=== PATIENT | female | born 1990 | race Caucasian/White ===

== ENCOUNTER 2017-01-01 12:17 | Emergency (ER) | payer OTHER ==
[2017-01-01 12:25] VITALS: BP 119/54; PULSE 79; TEMP 98.1; BMI 31.8
[2017-01-01] MEDS ORDERED: diphenhydrAMINE HCL 25 MG CAPSULE (FP) PO ONE ×2 (13:23→13:34)
[2017-01-01] MEDS ORDERED: DEXAMETHASONE 4 MG TABLET (FP) ONE (13:23)
[2017-01-01] MEDS ORDERED: DEXAMETHASONE 4 MG TABLET (FP) PO ONE (13:34)
--- NOTE | 2017-01-01 13:48 | PDOC ---
History of Present Illness - General Chief Complaint: Allergic Reaction Stated Complaint: RASH ON BODY Time Seen by Provider: 01/01/17 12:49 - History of Present Illness Initial Comments: 01/01/17 13:35 CHIEF COMPLAINT: HISTORY OF PRESENT ILLNESS: 26 yo F with no PMH presents to [facility] with rash since yesterday. Patient states the rash is all over her body including her face. She denies any difficulty breathing, speaking, or swallowing, and denies any swelling to lips, mouth, tongue, or throat, but does report feeling "some tightness to my chest right now." She denies any fever, nausea, vomiting , diarrhea, and denies any new foods or contact with new substances. She does report this happened once last year. No recent travel or sick contacts. PAST MEDICAL HISTORY: Denies past medical history FAMILY HISTORY: Denies SURGICAL HISTORY: Denies ALLERGIES: fish, PCN REVIEW OF SYSTEMS General/Constitutional: Denies fever or chills. Respiratory: no shortness of breath, difficulty speaking or swallowing Cardiovascular: Denies chest pain or shortness of breath. Skin: Rash all over body starting yesterday. PHYSICAL EXAM General Appearance: Well-appearing, appropriately dressed. No apparent distress , no intoxication. HEENT: No swelling to mouth, throat, lips, uvula, oropharynx. EOMI, PERRLA, normal ENT inspection, normal voice, TMs normal, pharynx normal. No conjunctival pallor. No photophobia, scleral icterus. Respiratory/Chest: Lungs CTAB. Cardiovascular: RRR. S1, S2. Integumentary: Generalized, erythematous, macular rash to entire body including , back, torso, arms, legs, and R forehead. Neurologic: environmental quality analyst II-XII intact. Fully oriented, alert. Appropriate mood/affect. Motor strength 5/5. No appreciable EOM palsy, facial droop or sensory deficit. 01/01/17 13:54 Past History - Past Medical History Allergies/Adverse Reactions: Allergies Allergy/AdvReac Type Severity Reaction Status Date / Time Fish Containing Products Allergy Mild Hives Verified 01/01/17 12:24 fish derived Allergy Mild Hives Verified 01/01/17 12:24 Penicillins Allergy Mild Hives Verified 01/01/17 12:24 Home Medications: Ambulatory Orders Methocarbamol [Robaxin -] 500 mg PO BID #14 tablet 10/16/15 Naproxen [Naprosyn -] 500 mg PO BID #14 tablet 10/16/15 Sulfamethoxazole/Trimethoprim [Bactrim Ds -] 1 tab PO BID #14 tablet 10/16/15 Diphenhydramine HCl [Diphen] 25 mg PO QID PRN #28 tablet 01/01/17 Epinephrine [Epipen] 0.3 mg IJ ONCE PRN #1 auto.injct 01/01/17 Hydrocortisone [Anti-Itch] 1 applic TP QID PRN #1 lotion 01/01/17 Anemia: Yes Asthma: Yes (seasonal) - Surgical History Abdominal Surgery: Yes Cholecystectomy: Yes - Reproductive History (#): 1 Para: 1 Cervical CA: No Dysfunctional Uterine Bleeding: No Ectopic : No Endometrial CA: No Polycystic Ovaries: No Therapeutic (s) & number: No Tubal Ligation: No - Immunization History Immunization Up to Date: Yes - Psycho/Social/Smoking Cessation Hx Anxiety: No Suicidal Ideation: No Smoking Status: No Smoking History: Never smoked Have you smoked in the past 12 months: No Number of Cigarettes Smoked Daily: 0 Information on smoking cessation initiated: No Hx Alcohol Use: No Drug/Substance Use Hx: No Substance Use Type: None Hx Substance Use Treatment: No *Physical Exam - Vital Signs Last Vital Signs Temp Pulse Resp BP Pulse Ox 98.1 F 79 19 119/54 99 01/01/17 12:23 01/01/17 12:23 01/01/17 12:23 01/01/17 12:23 01/01/17 12:23 Medical Decision Making - Medical Decision Making 01/01/17 13:48 26 yo F with no PMH presents to [facility] with urticaria involving face -Benadryl -Decadron rx for Benadryl and epi pen sent to pharm Advised patient to take medication as prescribed and follow up with c d stripper within the next week. Advised patient of signs and symptoms for use of epipen and return to ED. Patient verbalized understanding and agrees to plan. *DC/Admit/Observation/Transfer Diagnosis at time of Disposition: Urticaria Allergic reaction Qualifiers: Encounter type: initial encounter Qualified Code(s): T78.40XA - Allergy, unspecified, initial encounter - Discharge Dispostion Admit: No - Prescriptions Prescriptions: Hydrocortisone [Anti-Itch] 1 applic TP QID PRN #1 lotion PRN Reason: For Itching Diphenhydramine HCl [Diphen] 25 mg PO QID PRN #28 tablet PRN Reason: For Itching Epinephrine [Epipen] 0.3 mg IJ ONCE PRN #1 auto.injct PRN Reason: allergic reaction - Referrals Referrals: Ricky Pagan [Primary Care Provider] - Fabby Rasmussen MD [Staff Physician] - - Patient Instructions Printed Discharge Instructions: DI for Adverse Drug Reaction -- Allergic Additional Instructions: Please use medications as prescribed and follow up with c d stripper within the next week for further evaluation of your allergy triggers. As discussed, if you experience any shortness of breath, swelling to your tongue, mouth, throat, lips, or have any difficulty speaking or swallowing, please use the epipen and return to the ER.
== END 2017-01-01 14:00 | disposition home or self-care (01) ==
LOC: JERFT 12:17
DX: L50.0 Allergic urticaria (principal); T78.40XA Allergy, unspecified, initial encounter
CPT/HCPCS: 99281-25

== ENCOUNTER 2017-04-25 14:34 | Emergency (ER) | payer OTHER ==
[2017-04-25 14:38] VITALS: BP 134/86; PULSE 16; TEMP 99.6; BMI 33.1
[2017-04-25] MEDS ORDERED: DEXAMETHASONE LIQUID 0.5 MG/5 ML 240 ML BULK BOTTLE PO ONE (14:56)
[2017-04-25] MEDS ORDERED: DEXAMETHASONE SOD PHOSPHATE 10 MG/1 ML VIAL ONE (14:58)
--- NOTE | 2017-04-25 15:20 | PDOC ---
History of Present Illness - General Chief Complaint: Sore Throat Stated Complaint: BODYACHES, SORE THROAT Time Seen by Provider: 04/25/17 14:41 History Source: Patient Exam Limitations: No Limitations - History of Present Illness Initial Comments: 04/25/17 14:59 Patient is a 27 year old female, no significant medical history currently on no medication presents with sore throat that started abruptly this a.m., generalized aches and pains, fever, dysphagia. Past Medical History: Denies. Allergies: Penicillin Medications: None Family History: Non-contributory Social History: Denies smoking, alcohol use, or IVDU Vital signs on arrival are notable for temperature of 99.8. Review of Systems GENERAL/CONSTITUTIONAL: Fever. No weakness. No weight change. HEAD, EYES, EARS, NOSE AND THROAT: No change in vision. No ear pain or discharge. Sore throat and dysphasia. CARDIOVASCULAR: No chest pain or shortness of breath. RESPIRATORY: No cough, wheezing, or hemoptysis. GASTROINTESTINAL: No nausea, vomiting, diarrhea or constipation. No rectal bleeding. GENITOURINARY: No dysuria, frequency, or change in urination. MUSCULOSKELETAL: No joint or muscle swelling or pain. No neck or back pain. SKIN AND BREASTS: No rash or easy bruising. NEUROLOGIC: No headache, vertigo, loss of consciousness, or loss of sensation. ENDOCRINE: No increased thirst. No abnormal weight change. HEMATOLOGIC/LYMPHATIC: No anemia, easy bleeding, or history of blood clots. ALLERGIC/IMMUNOLOGIC: No hives or skin allergy. No latex allergy. Physical Exam: GENERAL: The patient is awake, alert, and fully oriented, in no acute distress. EYES: Pupils equal, round and reactive to light, extraocular movements intact, sclera anicteric, conjunctiva clear. ENT: Ears normal, nares patent, oropharynx is erythematous without exudates. Moist mucous membranes. No uvula deviation NECK: Normal range of motion, supple without lymphadenopathy, JVD, or masses. LUNGS: Breath sounds equal, clear to auscultation bilaterally. No wheezes, and no crackles. HEART: Regular rate and rhythm, normal S1 and S2 without murmur, rub or gallop. ABDOMEN: Soft, nontender, normoactive bowel sounds. No guarding, no rebound. No masses. No bruising or abrasions RECTAL : Guaiac negative, normal rectal tone. MUSCULOSKELETAL: Normal range of motion, no edema. No clubbing or cyanosis. No cords, erythema, or tenderness. No CVA Tenderness with fist. NEUROLOGICAL: Cranial nerves II through XII grossly intact. Normal speech, normal gait. SKIN: Warm, Dry, normal turgor, no rashes or lesions noted. Past History - Past Medical History Allergies/Adverse Reactions: Allergies Allergy/AdvReac Type Severity Reaction Status Date / Time Fish Containing Products Allergy Mild Hives Verified 04/25/17 14:38 fish derived Allergy Mild Hives Verified 04/25/17 14:38 Penicillins Allergy Mild Hives Verified 04/25/17 14:38 Home Medications: Ambulatory Orders Epinephrine [Epipen] 0.3 mg IJ ONCE PRN #1 auto.injct 01/01/17 Azithromycin [Zithromax 250mg Tablets -] 250 mg PO UTDICT #6 tab 04/25/17 Anemia: Yes Asthma: Yes (seasonal) - Surgical History Abdominal Surgery: Yes Cholecystectomy: Yes - Reproductive History (#): 1 Para: 1 Cervical CA: No Dysfunctional Uterine Bleeding: No Ectopic : No Endometrial CA: No Polycystic Ovaries: No Therapeutic (s) & number: No Tubal Ligation: No - Immunization History Immunization Up to Date: Yes - Psycho/Social/Smoking Cessation Hx Anxiety: No Suicidal Ideation: No Smoking Status: No Smoking History: Never smoked Have you smoked in the past 12 months: No Number of Cigarettes Smoked Daily: 0 Hx Alcohol Use: Yes Drug/Substance Use Hx: No Substance Use Type: None Hx Substance Use Treatment: No *Physical Exam - Vital Signs Last Vital Signs Temp Pulse Resp BP Pulse Ox 99.6 F 16 L 121 H 134/86 98 04/25/17 14:36 04/25/17 14:36 04/25/17 14:36 04/25/17 14:36 04/25/17 14:36 Medical Decision Making - Medical Decision Making 04/25/17 15:20 A/P: Patient with fever, throat pain, dysphagia. Although physical examination only demonstrates erythema to the posterior pharynx without exudates patient's subjective data including dysphagia are highly suggestive of strep. Decadron 10 mg by mouth given for the dysphagia, rapid strep sent. Rapid strep is positive. We'll DC patient home on Motrin and azithromycin. Change toothbrush in 3 days I discussed the physical exam findings, ancillary test results and final diagnoses with the patient. I answered all of the patient's questions. The patient was satisfied with the care received and felt comfortable with the discharge plan and treatment plan. The patient will call to arrange follow-up and will return to the Emergency Department with any new, persistent or worsening symptoms. *DC/Admit/Observation/Transfer Diagnosis at time of Disposition: Strep pharyngitis - Discharge Dispostion Disposition: HOME Condition at time of disposition: Good Admit: No - Prescriptions Prescriptions: Azithromycin [Zithromax 250mg Tablets -] 250 mg PO UTDICT #6 tab - Referrals Referrals: Ricky Pagan [Primary Care Provider] - - Patient Instructions Printed Discharge Instructions: DI for Strep Throat Additional Instructions: 1. Increase fluid. 2. Pedialyte or Gatorade. 3. Please change toothbrush within 3 days of starting antibiotics. 4. Warm saltwater gargles. 5. Please follow up with PMD in 3 days if symptoms not resolving. 6. Please return to the ER unable to drink or eat, increased fever or other concerns - Post Discharge Activity Work/School Note: Back to Work
[2017-04-25] MEDS ORDERED: KETOROLAC TROMETHAMINE 60 MG/2 ML VIAL IM ONE (15:24)
[2017-04-25] MEDS ORDERED: KETOROLAC TROMETHAMINE 60 MG/2 ML VIAL ONE (15:26)
== END 2017-04-25 15:35 | disposition home or self-care (01) ==
LOC: JERFT 14:34
PROC: 3E0233Z Introduction of Anti-inflammatory into Muscle, Percutaneous Approach (ICD-10-PCS; principal; 2017-04-25)
DX: R13.10 Dysphagia, unspecified (principal); J02.0 Streptococcal pharyngitis; J45.998 Other asthma
CPT/HCPCS: 87070; 87077; 87430; 99281-25

== ENCOUNTER 2017-04-29 15:14 | Emergency (ER) | payer OTHER ==
[2017-04-29 15:23] VITALS: BP 111/79; PULSE 100; TEMP 98.6; BMI 33.1
[2017-04-29] MEDS ORDERED: DEXAMETHASONE SOD PHOSPHATE 10 MG/1 ML VIAL IM ONE (16:03)
--- NOTE | 2017-04-29 16:03 | PDOC ---
History of Present Illness - General Chief Complaint: Allergic Reaction Stated Complaint: HIVES ON BODY Time Seen by Provider: 04/29/17 15:56 History Source: Patient Exam Limitations: No Limitations - History of Present Illness Initial Comments: CHIEF COMPLAINT: 27 y/o afebrile female with no significant PMH c/o itchy rash since last night. HISTORY OF PRESENT ILLNESS: The patient states she started taking a z-pack for strep throat 5 days ago and took her last pill today. She states last night she developed an itchy rash all over her body. She did not eat anything unusual and denies f/c, n/v/d, facial swelling, lip/tongue swelling, difficulty breathing, CP, SOB, exposure to new soaps, dyes, detergents. Vital signs on arrival are notable for pulse of 100. REVIEW OF SYSTEMS: GENERAL/CONSTITUTIONAL: No fever/chills. No weakness. No weight change. HEAD, EYES, EARS, NOSE AND THROAT: No change in vision. No ear pain or discharge. No sore throat. CARDIOVASCULAR: No chest pain or shortness of breath. RESPIRATORY: No cough, wheezing, or hemoptysis. GASTROINTESTINAL: No abd pain, nausea, vomiting, diarrhea. GENITOURINARY: No dysuria, frequency, or change in urination. MUSCULOSKELETAL: No joint or muscle swelling or pain. No neck or back pain. SKIN: +diffuse itchy rash NEUROLOGIC: No headache, vertigo, loss of consciousness, or loss of sensation. PHYSICAL EXAM: GENERAL: The patient is awake, alert, and fully oriented, in no acute distress. She is well appearing and ambulatory. HEAD: Normal with no signs of trauma. EYES: Pupils equal, round and reactive to light, extraocular movements intact, sclera anicteric, conjunctiva clear. No angioedema. No lip or tongue swelling. LUNGS: CTA EXTREMITIES: Normal range of motion, no edema. NEUROLOGICAL: Normal speech, normal gait. SKIN: Diffuse maculo-papular rash on b/l legs, arms, back and stomach. Past History - Past Medical History Allergies/Adverse Reactions: Allergies Allergy/AdvReac Type Severity Reaction Status Date / Time Fish Containing Products Allergy Mild Hives Verified 04/29/17 15:19 fish derived Allergy Mild Hives Verified 04/29/17 15:19 Penicillins Allergy Mild Hives Verified 04/29/17 15:19 Home Medications: Ambulatory Orders NK [No Known Home Medication] 04/29/17 Anemia: Yes Asthma: Yes (seasonal) - Surgical History Abdominal Surgery: Yes Cholecystectomy: Yes - Reproductive History (#): 1 Para: 1 Cervical CA: No Dysfunctional Uterine Bleeding: No Ectopic : No Endometrial CA: No Polycystic Ovaries: No Therapeutic (s) & number: No Tubal Ligation: No - Immunization History Immunization Up to Date: Yes - Psycho/Social/Smoking Cessation Hx Anxiety: No Suicidal Ideation: No Smoking Status: No Smoking History: Never smoked Have you smoked in the past 12 months: No Number of Cigarettes Smoked Daily: 0 Hx Alcohol Use: Yes Drug/Substance Use Hx: No Substance Use Type: None Hx Substance Use Treatment: No *Physical Exam - Vital Signs Last Vital Signs Temp Pulse Resp BP Pulse Ox 98.6 F 100 H 18 111/79 99 04/29/17 15:20 04/29/17 15:20 04/29/17 15:20 04/29/17 15:20 04/29/17 15:20 Medical Decision Making - Medical Decision Making A/P: 27 y/o afebrile female with no significant PMH c/o itchy rash on body. Plan is as follows: 1. IM decadon Patient states she feels better. Suggested she not take azithromycin again, although she has completed her entire script. Instructed her to f/u with Dr. Bravo for allergy testing if needed and return to the ER with any worsening or concerning symptoms. The patient verbalizes understanding of all instructions, has no further questions and is awaiting discharge. *DC/Admit/Observation/Transfer Diagnosis at time of Disposition: Rash and nonspecific skin eruption - Discharge Dispostion Disposition: HOME Condition at time of disposition: Improved - Referrals Referrals: Ricky Pagan [Primary Care Provider] - Roge Bravo MD [Staff Physician] - - Patient Instructions Printed Discharge Instructions: DI for Adverse Drug Reaction -- Allergic, DI for Rash Additional Instructions: Discharge Instructions: -You received a shot of Decadron in the ER; the effects should last approximately 36 hours. -Use benadryl cream if needed for itching -Call Dr. Bravo to schedule follow up appointment -Return to the ER with any worsening or concerning symptoms
[2017-04-29] MEDS ORDERED: DEXAMETHASONE SOD PHOSPHATE 10 MG/1 ML VIAL ONE (16:04)
== END 2017-04-29 17:06 | disposition home or self-care (01) ==
LOC: JER 15:14 → JERFT 15:14
PROC: 3E0233Z Introduction of Anti-inflammatory into Muscle, Percutaneous Approach (ICD-10-PCS; principal; 2017-04-29)
DX: R21 Rash and other nonspecific skin eruption (principal)
CPT/HCPCS: 96372; 99281-25

== ENCOUNTER 2017-05-27 09:36 | Emergency (ER) | payer OTHER ==
[2017-05-27 09:45] VITALS: BP 148/100; PULSE 80; TEMP 98.2; BMI 32.8
--- NOTE | 2017-05-27 10:21 | PDOC ---
History of Present Illness - General Chief Complaint: Head/Neck problem Stated Complaint: STIFF NECK Time Seen by Provider: 05/27/17 09:59 History Source: Patient Exam Limitations: No Limitations - History of Present Illness Initial Comments: 05/27/17 10:18 27 yr female with c/o stiff neck after turnign wrong way in her shower this AM. pt has limited ROM to her neck and pain on the left side. neg numbness or tingling. no medical history or allergies. Timing/Duration: 1 hour, constant Severity: moderate Associated Symptoms: reports: denies symptoms Past History - Past Medical History Allergies/Adverse Reactions: Allergies Allergy/AdvReac Type Severity Reaction Status Date / Time Fish Containing Products Allergy Mild Hives Verified 05/27/17 09:42 fish derived Allergy Mild Hives Verified 05/27/17 09:42 Penicillins Allergy Mild Hives Verified 05/27/17 09:42 Home Medications: Ambulatory Orders Diazepam [Valium] 5 mg PO Q8H PRN #15 tablet MDD 15mg 05/27/17 Ketorolac Tromethamine [Toradol] 10 mg PO TID PRN #21 tablet 05/27/17 Anemia: Yes Asthma: Yes (seasonal) - Surgical History Abdominal Surgery: Yes Cholecystectomy: Yes - Reproductive History (#): 1 Para: 1 Cervical CA: No Dysfunctional Uterine Bleeding: No Ectopic : No Endometrial CA: No Polycystic Ovaries: No Therapeutic (s) & number: No Tubal Ligation: No - Immunization History Immunization Up to Date: Yes - Psycho/Social/Smoking Cessation Hx Anxiety: No Suicidal Ideation: No Smoking Status: No Smoking History: Never smoked Have you smoked in the past 12 months: No Number of Cigarettes Smoked Daily: 0 Hx Alcohol Use: Yes Drug/Substance Use Hx: No Substance Use Type: None Hx Substance Use Treatment: No Review of Systems - Review of Systems Able to Perform ROS?: Yes Is the patient limited Slovenian proficient: No Constitutional: No: Symptoms Reported HEENTM: No: Symptoms Reported Musculoskeletal: Yes: Symptoms Reported *Physical Exam - Vital Signs Last Vital Signs Temp Pulse Resp BP Pulse Ox 98.2 F 80 19 148/100 96 05/27/17 09:42 05/27/17 09:42 05/27/17 09:42 05/27/17 09:42 05/27/17 09:42 - Physical Exam General Appearance: Yes: Nourished, Appropriately Dressed HEENT: positive: EOMI, JOAN, TMs Normal, Pharynx Normal Neck: positive: Supple, Tender lateral (left muscle spasm ). negative: Tender Respiratory/Chest: positive: Lungs Clear, Normal Breath Sounds. negative: Chest Tender Cardiovascular: positive: Regular Rhythm, Regular Rate Gastrointestinal/Abdominal: positive: Normal Bowel Sounds, Soft Musculoskeletal: positive: Normal Inspection Extremity: positive: Normal Capillary Refill, Normal Inspection, Normal Range of Motion Integumentary: positive: Normal Color Medical Decision Making - Medical Decision Making 05/27/17 10:20 cc: stiff neck, muscle spasm this am while in shower turned the wrong way and felt a crack/pulling in her neck limited ROM no midline tenderness positive spasm noted left side lateral will r/o LMP 04/24/17 05/27/17 11:31 xray has been reviewed pt feels some pain relief from the medication I will dc home with strict follow up instructions. pt is to see orthopedist if pain worsens or persists beyond 3 days pt understands the plan of care will return to ER if worsening pain *DC/Admit/Observation/Transfer Diagnosis at time of Disposition: Cervical strain, acute Qualifiers: Encounter type: initial encounter Qualified Code(s): S16.1XXA - Strain of muscle, fascia and tendon at neck level, initial encounter - Discharge Dispostion Disposition: HOME Condition at time of disposition: Good - Prescriptions Prescriptions: Ketorolac Tromethamine [Toradol] 10 mg PO TID PRN #21 tablet PRN Reason: Pain Diazepam [Valium] 5 mg PO Q8H PRN #15 tablet MDD 15mg PRN Reason: Muscle Spasms - Referrals Referrals: Ricky Pagan [Primary Care Provider] - Raghavendra Martin MD [Staff Physician] - - Patient Instructions Printed Discharge Instructions: DI for Whiplash Additional Instructions: please place a heating pad or warm compress to the area of pain every 3hrs fro 20 minutes take the medication as prescribed, valium is every 8hrs toradol is every 8hrs follow with the orthopedist if symptoms worsen or persist
[2017-05-27] MEDS ORDERED: KETOROLAC TROMETHAMINE 60 MG/2 ML VIAL IM ONE (10:26)
[2017-05-27] MEDS ORDERED: diazePAM 5 MG TABLET PO ONE (10:26)
[2017-05-27] MEDS ORDERED: KETOROLAC TROMETHAMINE 60 MG/2 ML VIAL ONE (10:35)
[2017-05-27] MEDS ORDERED: diazePAM 5 MG TABLET ONE (10:35)
== END 2017-05-27 11:44 | disposition home or self-care (01) ==
LOC: JERFT 09:36
PROC: 3E0333Z Introduction of Anti-inflammatory into Peripheral Vein, Percutaneous Approach (ICD-10-PCS; principal; 2017-05-27)
DX: S16.1XXA Strain of muscle, fascia and tendon at neck level, initial encounter (principal); X58.XXXA Exposure to other specified factors, initial encounter; Y93.89 Activity, other specified; Y92.9 Unspecified place or not applicable; J45.998 Other asthma; D64.9 Anemia, unspecified
CPT/HCPCS: 72050-TC; 84703; 96372; 99281-25

== ENCOUNTER 2017-09-22 22:02 | Emergency (ER) | payer OTHER ==
[2017-09-22 22:07] VITALS: BP 128/76; PULSE 109; TEMP 98.7; BMI 34.5
[2017-09-22 22:21] LABS: HCG,QUALITATIVE URINE NEGATIVE
[2017-09-22 22:26] LABS: URINE APPEARANCE SLCLOUDY; URINE BILIRUBIN NEGATIVE (NEGATIVE); URINE BLOOD 2+ (NEGATIVE); URINE COLOR LTYELLOW; URINE GLUCOSE (UA) NEGATIVE (NEGATIVE); URINE KETONE NEGATIVE (NEGATIVE); URINE LEUK ESTERASE 2+ (NEGATIVE); URINE NITRITE NEGATIVE (NEGATIVE); URINE PROTEIN 1+ (NEGATIVE); URINE UROBILINOGEN NEGATIVE mg/dL (0.2-1.0)
[2017-09-23 00:19] LABS: EPI CELLS RARE /HPF (FEW); URINE BACTERIA RARE /hpf (NONE SEEN); URINE MUCUS RARE; YEAST FEW
[2017-09-23] MEDS ORDERED: METHOCARBAMOL 500 MG TABLET PO ONE (01:06)
[2017-09-23] MEDS ORDERED: IBUPROFEN 400 MG TABLET (FP) PO ONE ×2 (01:06→01:20)
--- NOTE | 2017-09-23 01:06 | PDOC ---
History of Present Illness - General History Source: Patient <WilderSanjay - Last Filed: 09/23/17 01:08> - General History Source: Patient Exam Limitations: No Limitations - History of Present Illness Initial Comments: 09/23/17 01:22 The patient is a 27 year old female with a significant remote PMH of asthma who presents to the emergency department with left sided lower back pain and left side flank pain beginning approximately yesterday morning. The patient denies any heavy lifting or trauma. She denies taking any medications for pain. She denies vaginal bleeding or discharge. The patient denies chest pain, shortness of breath, headache, and dizziness. Denies fevers, chills, nausea, vomiting, diarrhea, and constipation. Denies dysuria, frequency, urgency and hematuria. Allergies: Penicillins Past surgical history:Abdominal surgery. Cholecystectomy. Social history: Social alcohol use. No reported cigarette or drug use. PCP: Dr. Ricky Pagan <Dequan Key - Last Filed: 09/23/17 01:23> - General Chief Complaint: Pain Stated Complaint: PAIN, ACUTE Time Seen by Provider: 09/22/17 23:24 Past History - Past Medical History Anemia: Yes Asthma: Yes (seasonal) COPD: No - Surgical History Abdominal Surgery: Yes Cholecystectomy: Yes - Reproductive History (#): 1 Para: 1 Cervical CA: No Dysfunctional Uterine Bleeding: No Ectopic : No Endometrial CA: No Polycystic Ovaries: No Therapeutic (s) & number: No Tubal Ligation: No - Immunization History Immunization Up to Date: Yes - Suicide/Smoking/Psychosocial Hx Smoking Status: No Smoking History: Never smoked Have you smoked in the past 12 months: No Number of Cigarettes Smoked Daily: 0 Hx Alcohol Use: Yes Drug/Substance Use Hx: No Substance Use Type: None Hx Substance Use Treatment: No <Sanjay Hdz - Last Filed: 09/23/17 01:08> <Dequan Key - Last Filed: 09/23/17 01:23> - Past Medical History Allergies/Adverse Reactions: Allergies Allergy/AdvReac Type Severity Reaction Status Date / Time Fish Containing Products Allergy Mild Hives Verified 09/22/17 22:05 fish derived Allergy Mild Hives Verified 09/22/17 22:05 Penicillins Allergy Mild Hives Verified 09/22/17 22:05 Home Medications: Ambulatory Orders Diazepam [Valium] 5 mg PO Q8H PRN #15 tablet MDD 15mg 05/27/17 Ketorolac Tromethamine [Toradol] 10 mg PO TID PRN #21 tablet 05/27/17 Ibuprofen 800 mg PO TID #30 tablet 09/23/17 Methocarbamol [Robaxin -] 1,000 mg PO TID #60 tablet 09/23/17 Review of Systems - Review of Systems Able to Perform ROS?: Yes Comments:: 09/23/17 01:22 CONSTITUTIONAL: Absent: fever, chills, diaphoresis, generalized weakness, malaise, loss of appetite HEENT: Absent: rhinorrhea, nasal congestion, throat pain, throat swelling, difficulty swallowing, mouth swelling, ear pain, eye pain, visual Changes CARDIOVASCULAR: Absent: chest pain, syncope, palpitations, irregular heart rate, lightheadedness , peripheral edema RESPIRATORY: Absent: cough, shortness of breath, dyspnea with exertion, orthopnea, wheezing, stridor, hemoptysis GASTROINTESTINAL: Absent: abdominal pain, abdominal distension, nausea, vomiting, diarrhea, constipation, melena, hematochezia GENITOURINARY: Absent: dysuria, frequency, urgency, hesitancy, hematuria, flank pain, genital pain MUSCULOSKELETAL: (+) Left sided lower back pain and left side flank pain. Absent: myalgia, arthralgia, joint swelling SKIN: Absent: rash, itching, pallor HEMATOLOGIC/IMMUNOLOGIC: Absent: easy bleeding, easy bruising, lymphadenopathy, frequent infections ENDOCRINE: Absent: unexplained weight gain, unexplained weight loss, heat intolerance, cold intolerance NEUROLOGIC: Absent: headache, focal weakness or paresthesias, dizziness, unsteady gait, seizure, mental status changes, bladder or bowel incontinence PSYCHIATRIC: Absent: anxiety, depression, suicidal or homicidal ideation, hallucinations. <Dequan Key - Last Filed: 09/23/17 01:23> *Physical Exam - Vital Signs Last Vital Signs Temp Pulse Resp BP Pulse Ox 98.7 F 109 H 20 128/76 98 09/22/17 22:05 09/22/17 22:05 09/22/17 22:05 09/22/17 22:05 09/22/17 22:05 <Sanjay Hdz - Last Filed: 09/23/17 01:08> - Vital Signs Last Vital Signs Temp Pulse Resp BP Pulse Ox 98.7 F 109 H 20 128/76 98 09/22/17 22:05 09/22/17 22:05 09/22/17 22:05 09/22/17 22:05 09/22/17 22:05 - Physical Exam Comments: 09/23/17 01:22 GENERAL: Well developed, well nourished. Awake and alert. No acute distress. HEENT: Normocephalic, atraumatic. PERRLA, EOMI. No conjunctival pallor. Sclera are non- icteric. Moist mucous membranes. Oropharynx is clear. NECK: Supple. Full ROM. No JVD. Carotid pulses 2+ and symmetric, without bruits. No thyromegaly. No lymphadenopathy. CARDIOVASCULAR: Regular rate and rhythm. No murmurs, rubs, or gallops. Distal pulses are 2+ and symmetric. PULMONARY: No evidence of respiratory distress. Lungs clear to auscultation bilaterally. No wheezing, rales or rhonchi. ABDOMINAL: (+) Morbidly obese Soft. Non-tender. Non-distended. No rebound or guarding. No organomegaly. Normoactive bowel sounds. MUSCULOSKELETAL Normal range of motion at all joints. No bony deformities or tenderness. No CVA tenderness. BACK: (+) Mild tenderness to left side lateral lumbar muscles. No CVA tenderness. EXTREMITIES: No cyanosis. No clubbing. No edema. No calf tenderness. SKIN: Warm and dry. Normal capillary refill. No rashes. No jaundice. NEUROLOGICAL: Alert, awake, appropriate. Cranial nerves 2-12 intact. No deficits to light touch and temperature in face, upper extremities and lower extremities. No motor deficits in the in face, upper extremities and lower extremities. Normoreflexic in the upper and lower extremities. Normal speech. Toes are down- going bilaterally. Gait is normal without ataxia. PSYCHIATRIC: Cooperative. Good eye contact. Appropriate mood and affect. <Dequan Key - Last Filed: 09/23/17 01:23> ED Treatment Course - ADDITIONAL ORDERS Additional order review: Laboratory Results 09/22/17 22:00 Urine Color Ltyellow Urine Appearance Slcloudy Urine pH 6.0 Ur Specific Bill[place] 1.013 Urine Protein 1+ H Urine Glucose (UA) Negative Urine Ketones Negative Urine Blood 2+ H Urine Nitrite Negative Urine Bilirubin Negative Urine Urobilinogen Negative Ur Leukocyte Esterase 2+ H Urine WBC (Auto) 37 Urine RBC (Auto) 17 Ur Epithelial Cells Rare Urine Bacteria Rare Urine Mucus Rare Urine Yeast Few Urine HCG, Qual Negative - RADIOLOGY Radiology Studies Ordered: Category Date Time Status SPIRAL- RENAL-STONE CT [CT] Stat CT Scan 09/22/17 23:25 Taken <Sanjay Hdz - Last Filed: 09/23/17 01:08> - ADDITIONAL ORDERS Additional order review: Laboratory Results 09/22/17 22:00 Urine Color Ltyellow Urine Appearance Slcloudy Urine pH 6.0 Ur Specific Bill[place] 1.013 Urine Protein 1+ H Urine Glucose (UA) Negative Urine Ketones Negative Urine Blood 2+ H Urine Nitrite Negative Urine Bilirubin Negative Urine Urobilinogen Negative Ur Leukocyte Esterase 2+ H Urine WBC (Auto) 37 Urine RBC (Auto) 17 Ur Epithelial Cells Rare Urine Bacteria Rare Urine Mucus Rare Urine Yeast Few Urine HCG, Qual Negative <Dequan Key - Last Filed: 09/23/17 01:23> Medical Decision Making - Medical Decision Making 09/23/17 01:12 Dr. Hdz: The scribe's documentation has been prepared under my direction and personally reviewed by me in its entirery. I confirm that the note above accurately reflects all work, treatment, procedures, and medical decision making performed by me. <Sanjay Hdz - Last Filed: 09/23/17 01:08> *DC/Admit/Observation/Transfer - Discharge Dispostion Admit: No <Sanjay Hdz - Last Filed: 09/23/17 01:08> - Attestations Scribe Attestion: 09/23/17 01:23 Documentation prepared by Dequan Key, acting as medical editor for Sanjay Hdz DO. <Dequan Key - Last Filed: 09/23/17 01:23> Diagnosis at time of Disposition: Back sprain or strain, Lumbar muscle pain - Discharge Dispostion Disposition: HOME Condition at time of disposition: Stable - Prescriptions Prescriptions: Ibuprofen 800 mg PO TID #30 tablet Methocarbamol [Robaxin -] 1,000 mg PO TID #60 tablet - Referrals Referrals: Ricky Pagan [Primary Care Provider] - - Patient Instructions Printed Discharge Instructions: DI for Low Back Pain Additional Instructions: take medications are directed. avoid heavy lifting, follow up with your doctor as by Tuesday for re-evaluation. - Post Discharge Activity Forms/Work/School Notes: Back to Work
[2017-09-23] MEDS ORDERED: METHOCARBAMOL 500 MG TABLET ONE (01:20)
== END 2017-09-23 01:28 | disposition home or self-care (01) ==
LOC: JER 22:02
DX: S39.012A Strain of muscle, fascia and tendon of lower back, initial encounter (principal); J45.909 Unspecified asthma, uncomplicated; E66.9 Obesity, unspecified; Z68.34 Body mass index [BMI] 34.0-34.9, adult; X58.XXXA Exposure to other specified factors, initial encounter; Y93.89 Activity, other specified; Y92.099 Unspecified place in other non-institutional residence as the place of occurrence of the external cause; Y99.8 Other external cause status
CPT/HCPCS: 74176; 81003; 81015; 84703; 99282-25

== ENCOUNTER 2017-12-29 20:28 | Emergency (ER) | payer OTHER ==
--- NOTE | 2017-12-29 20:37 | PDOC ---
Rapid Medical Evaluation Time Seen by Provider: 12/29/17 20:36 Medical Evaluation: Allergies Allergy/AdvReac Type Severity Reaction Status Date / Time Fish Containing Products Allergy Mild Hives Verified 09/22/17 22:05 fish derived Allergy Mild Hives Verified 09/22/17 22:05 Penicillins Allergy Mild Hives Verified 09/22/17 22:05 12/29/17 20:36 I have performed a brief in-person evaluation of this patient. The patient presents with a chief complaint of: nausea, dizziness, headache, taken tylenol w/o relief, LMP 12/06 Pertinent physical exam findings: +photophobia I have ordered the following: urine preg The patient will proceed to the ED for further evaluation. Discharge Disposition - Diagnosis Headache - Referrals - Patient Instructions - Post Discharge Activity
[2017-12-29 20:45] VITALS: BP 117/70; PULSE 72; TEMP 98.1; BMI 33.6
[2017-12-29] MEDS ORDERED: MECLIZINE HCL 25 MG TABLET (FP) PO STA (21:20)
--- NOTE | 2017-12-29 21:20 | PDOC ---
History of Present Illness - General History Source: Patient <Sanjay Hdz - Last Filed: 12/29/17 23:28> - General History Source: Patient, Old Records Exam Limitations: No Limitations - History of Present Illness Initial Comments: 12/29/17 23:30 Patient is a 27 year old female with no significant past medical history who represents to the ED with complaints of unsteadiness that began 3 days ago. Patient reports experiencing unsteadiness that began 3 days ago, that she states has been gradually increasing causing her to worry slightly. She reports becoming increasingly worried about the symptoms that she went to urgent care for evaluation, stating she has blood work, ECG, and physical exam done, with all results being negative. Patient reports driving when she felt as if she was drunk and felt that she was unable to control the car properly prompting her to come into the ED for further evaluation. Denies chest pain, Sob. Denies nausea, vomiting. Denies fevers, chills. Denies contact with sick individuals, out of state travelling. Denies change in vision , head pain. Denies slurred speech, numbness, tingles. Denies any other symptoms. Allergies: Fish, Penicillin. Social history: Social alcohol use. No reported cigarette or drug use. Surgical history: Abdominal surgery. Cholecystectomy. PMD: Dr. Pagan. <Ran Finley - Last Filed: 12/29/17 23:32> - General Chief Complaint: Migraine Headache Stated Complaint: DIZZINESS Time Seen by Provider: 12/29/17 20:36 Past History - Past Medical History Anemia: Yes Asthma: Yes (seasonal) COPD: No - Surgical History Abdominal Surgery: Yes Cholecystectomy: Yes - Reproductive History (#): 1 Para: 1 Cervical CA: No Dysfunctional Uterine Bleeding: No Ectopic : No Endometrial CA: No Polycystic Ovaries: No Therapeutic (s) & number: No Tubal Ligation: No - Immunization History Immunization Up to Date: Yes - Suicide/Smoking/Psychosocial Hx Smoking Status: No Smoking History: Never smoked Have you smoked in the past 12 months: No Number of Cigarettes Smoked Daily: 0 Hx Alcohol Use: Yes Drug/Substance Use Hx: No Substance Use Type: None Hx Substance Use Treatment: No <Sanjay Hdz - Last Filed: 12/29/17 23:28> <Ran Finley - Last Filed: 12/29/17 23:32> - Past Medical History Allergies/Adverse Reactions: Allergies Allergy/AdvReac Type Severity Reaction Status Date / Time Fish Containing Products Allergy Mild Hives Verified 12/29/17 20:36 fish derived Allergy Mild Hives Verified 12/29/17 20:36 Penicillins Allergy Mild Hives Verified 12/29/17 20:36 Home Medications: Ambulatory Orders Meclizine HCl 25 mg PO TID #60 tablet 12/29/17 Review of Systems - Review of Systems Able to Perform ROS?: Yes Comments:: 12/29/17 23:30 CONSTITUTIONAL: +unsteadiness. Absent: fever, no chills, EYES: Absent: visual changes ENT: Absent: ear pain, no sore throat CARDIOVASCULAR: Absent: chest pain, no palpitations RESPIRATORY: Absent: cough, no SOB GI: Absent: abdominal pain, no nausea, no vomiting, no constipation, no diarrhea GENITOURINARY: Absent: dysuria, no frequency, no hematuria MUSCULOSKELETAL: Absent: back pain, no arthralgia, no myalgia SKIN: Absent: rash <Ran Finley - Last Filed: 12/29/17 23:32> *Physical Exam - Vital Signs Last Vital Signs Temp Pulse Resp BP Pulse Ox 98.1 F 72 18 117/70 100 12/29/17 20:37 12/29/17 20:37 12/29/17 20:37 12/29/17 20:37 12/29/17 20:37 <Sanjay Hdz - Last Filed: 12/29/17 23:28> - Vital Signs Last Vital Signs Temp Pulse Resp BP Pulse Ox 98.1 F 72 18 117/70 100 12/29/17 20:37 12/29/17 20:37 12/29/17 20:37 12/29/17 20:37 12/29/17 20:37 - Physical Exam Comments: 12/29/17 23:32 GENERAL: Well-appearing, well-nourished. No apparent distress. HEENT: Normocephalic, atraumatic. PERRL, EOM intact. CARDIOVASCULAR: Normal S1, S2. Regular rate and rhythm. PULMONARY: Clear to auscultation bilaterally. ABDOMEN: Soft, non-distended, non-tender. EXTREMITIES: Normal ROM in all four extremities. No gross deformities. SKIN: Warm, dry. No rash NEUROLOGICAL: No focal neurological deficits. <Ran Finley - Last Filed: 12/29/17 23:32> ED Treatment Course - ADDITIONAL ORDERS Additional order review: Laboratory Results 12/29/17 21:27 Urine HCG, Qual Negative - Medications Given in the ED: ED Medications Discontinued Medications Generic Name Dose Route Start Last Admin Trade Name Jennie PRN Reason Stop Dose Admin Meclizine HCl 25 mg 12/29/17 21:20 12/29/17 21:50 Antivert - PO 12/29/17 21:21 25 mg ONCE STA Administration <Ran Finley - Last Filed: 12/29/17 23:32> Medical Decision Making - Medical Decision Making 12/29/17 23:27 Dr. Hdz: The scribe's documentation has been prepared under my direction and personally reviewed by me in its entirery. I confirm that the note above accurately reflects all work, treatment, procedures, and medical decision making performed by me. Head Ct scan is negative Pt feels better after Meclizine 25mg. Will discharge <Sanjay Hdz - Last Filed: 12/29/17 23:28> *DC/Admit/Observation/Transfer - Discharge Dispostion Admit: No <Sanjay Hdz - Last Filed: 12/29/17 23:28> - Attestations Scribe Attestion: 12/29/17 23:32 Documentation prepared by Ran Finley, acting as medical front desk coordinator for Sanjay Hdz MD/DO. <Ran Finley - Last Filed: 12/29/17 23:32> Diagnosis at time of Disposition: Headache, Vertigo - Prescriptions Prescriptions: Meclizine HCl 25 mg PO TID #60 tablet - Referrals Referrals: Ricky Pagan [Primary Care Provider] - - Patient Instructions Printed Discharge Instructions: DI for Vertigo Additional Instructions: Take medication as directed. Drink plenty of fluids. Follow up with your doctor if your symptoms are worse. - Post Discharge Activity
[2017-12-29] MEDS ORDERED: MECLIZINE HCL 25 MG TABLET (FP) ONE (21:52)
== END 2017-12-30 00:10 | disposition home or self-care (01) ==
LOC: JER 20:28
DX: R42 Dizziness and giddiness (principal); R51 Headache; Z86.2 Personal history of diseases of the blood and blood-forming organs and certain disorders involving the immune mechanism; Z87.09 Personal history of other diseases of the respiratory system
CPT/HCPCS: 70450-TC; 84703; 99281-25

== ENCOUNTER 2018-02-08 20:00 | Emergency (ER) | payer OTHER ==
--- NOTE | 2018-02-08 20:33 | PDOC ---
Rapid Medical Evaluation Time Seen by Provider: 02/08/18 20:29 Medical Evaluation: Allergies Allergy/AdvReac Type Severity Reaction Status Date / Time Fish Containing Products Allergy Mild Hives Verified 12/29/17 20:36 fish derived Allergy Mild Hives Verified 12/29/17 20:36 Penicillins Allergy Mild Hives Verified 12/29/17 20:36 02/08/18 20:29 I have performed a brief in-person evaluation of the patient. The patient presents with a chief complaint of : nausea, vomiting, headache and lower back and lower abdominal pain since Tuesday. States had spotting last week. Denies spotting or constipation at present. Has zofran states not effective Pertinent physical exam findings. NAD unlabored breathing I have ordered the following bhcg, cbc, saline lock , iv fluids, antiemetic This patient will proceed to the ED for further evaluation.
[2018-02-08 20:36] VITALS: BP 119/72; PULSE 86; TEMP 98.3; BMI 35.2
[2018-02-08] MEDS ORDERED: SODIUM CHLORIDE 0.9% 500 ML INFUS.BAG IV ONE (20:36)
[2018-02-08 21:02] LABS: BASO % 0.8 % (0-2.0); EOS % 2.7 % (0-4.5); HEMATOCRIT 36.9 % (32.4-45.2); HEMOGLOBIN 12.1 GM/dL (10.7-15.3); LYMPH % 25.8 % (8-40); MCH 28.1 pg (25.7-33.7); MCHC 32.7 g/dl (32.0-36.0); MEAN CELL VOLUME 85.8 fl (80-96); MEAN PLT VOLUME 7.9 fl (7.5-11.1); NEUT % 63.7 % (42.8-82.8); PLATELET COUNT 331 K/MM3 (134-434); RBC 4.29 M/mm3 (3.60-5.2); RDW 15.5 % (11.6-15.6)
--- NOTE | 2018-02-08 21:25 | PDOC ---
History of Present Illness - General Chief Complaint: Nausea/Vomiting Stated Complaint: CRAMPING/9 WKS Time Seen by Provider: 02/08/18 20:29 - History of Present Illness Initial Comments: 02/08/18 23:02 27-year-old female complaining of nausea and vomiting for 5 days. Patient is able to tolerate some by mouth reports that she usually vomited shortly after. Patient reports that she is 9 weeks positive IUP on ultrasound with OB/ [employer]. Patient reports that for the last 3 days she's been having pelvic pain. Denies urinary symptoms reports suprapubic pain. Patient denies fever/chills. Past History - Past Medical History Allergies/Adverse Reactions: Allergies Allergy/AdvReac Type Severity Reaction Status Date / Time Fish Containing Products Allergy Mild Hives Verified 02/08/18 20:31 fish derived Allergy Mild Hives Verified 02/08/18 20:31 Penicillins Allergy Mild Hives Verified 02/08/18 20:31 Home Medications: Ambulatory Orders Meclizine HCl 25 mg PO TID #60 tablet 12/29/17 Doxylamine Succinate/Vit B6 [Dicnishgilan Dr 10-10 mg Tablet] 1 each PO BID #20 tablet. 02/08/18 Nitrofurantoin Monohyd/M-Cryst [Macrobid -] 100 mg PO BID #20 capsule 02/09/18 Anemia: Yes Asthma: Yes (seasonal) COPD: No - Surgical History Abdominal Surgery: Yes Cholecystectomy: Yes - Reproductive History (#): 1 Para: 1 Cervical CA: No Dysfunctional Uterine Bleeding: No Ectopic : No Endometrial CA: No Polycystic Ovaries: No Therapeutic (s) & number: No Tubal Ligation: No - Immunization History Immunization Up to Date: Yes - Suicide/Smoking/Psychosocial Hx Smoking Status: No Smoking History: Never smoked Have you smoked in the past 12 months: No Number of Cigarettes Smoked Daily: 0 Information on smoking cessation initiated: No Hx Alcohol Use: No Drug/Substance Use Hx: No Substance Use Type: None Hx Substance Use Treatment: No Review of Systems - Review of Systems Able to Perform ROS?: Yes Is the patient limited Estonian proficient: No Constitutional: No: Symptoms Reported, See HPI, Chills, Diaphoresis, Fever, Loss of Appetite, Malaise, Night Sweats, Weakness, Weight Stable, Unintentional Wgt. Loss, Unexplained wgt Loss, Other ABD/GI: Yes: Nausea, Vomiting, Other (suprapubic pain) : No: Symptoms Reported, See HPI, Burning, Dysuria, Discharge, Frequency, Flank Pain, Hematuria, Incontinence, Pain, Urgency, Testicular Mass, Testicular Swelling, Lesions, Testicular Pain, Other *Physical Exam - Vital Signs Last Vital Signs Temp Pulse Resp BP Pulse Ox 98.3 F 86 20 119/72 100 02/08/18 20:31 02/08/18 20:31 02/08/18 20:31 02/08/18 20:31 02/08/18 20:31 - Physical Exam General Appearance: Yes: Appropriately Dressed Respiratory/Chest: positive: Lungs Clear, Normal Breath Sounds Cardiovascular: positive: Regular Rhythm, Regular Rate Female Pelvic Exam: positive: normal external exam, cervical os closed. negative: CMT, vaginal bleeding Gastrointestinal/Abdominal: positive: Normal Bowel Sounds, Tender (suprapubic), Soft Extremity: positive: Normal Capillary Refill, Normal Inspection, Normal Range of Motion Integumentary: positive: Normal Color, Dry, Warm Neurologic: positive: Fully Oriented, Alert, Normal Mood/Affect ED Treatment Course - LABORATORY CBC & Chemistry Diagram: 02/08/18 20:50 - ADDITIONAL ORDERS Additional order review: 02/08/18 20:50 RBC 4.29 MCV 85.8 MCHC 32.7 RDW 15.5 D MPV 7.9 Neutrophils % 63.7 D Lymphocytes % 25.8 D Monocytes % 7.0 Eosinophils % 2.7 Basophils % 0.8 - RADIOLOGY Radiology Studies Ordered: Category Date Time Status TRANSVAGINAL US PREG [US] Stat Ultrasound 02/08/18 21:24 Ordered - Medications Given in the ED: ED Medications Discontinued Medications Generic Name Dose Route Start Last Admin Trade Name Freq PRN Reason Stop Dose Admin Sodium Chloride 1,000 ml 02/08/18 20:36 02/08/18 21:14 Normal Saline - IV 02/08/18 20:37 1,000 ml ONCE ONE Administration Medical Decision Making - Medical Decision Making Hyperemesis gravidum; UTI P: cbc cmp UA UCX TVUS: + IUP small subchorionic hemorrhage *DC/Admit/Observation/Transfer Diagnosis at time of Disposition: Pelvic pain during , Hyperemesis gravidarum UTI (urinary tract infection) Qualifiers: Urinary tract infection type: acute cystitis Hematuria presence: without hematuria Qualified Code(s): N30.00 - Acute cystitis without hematuria - Discharge Dispostion Disposition: HOME - Prescriptions Prescriptions: Doxylamine Succinate/Vit B6 [Diclegis Dr 10-10 mg Tablet] 1 each PO BID #20 tablet. Nitrofurantoin Monohyd/M-Cryst [Macrobid -] 100 mg PO BID #20 capsule - Referrals Referrals: Ricky Pagan [Primary Care Provider] - - Patient Instructions Printed Discharge Instructions: Urinary Tract Infection Additional Instructions: drink plenty of fluids. - Post Discharge Activity Forms/Work/School Notes: Back to Work
[2018-02-08] MEDS: ONDANSETRON 4 MG/2 ML VIAL IVPUSH ONE ×2 (21:50→21:53)
[2018-02-08 22:21] LABS: URINE APPEARANCE SLCLOUDY; URINE BILIRUBIN NEGATIVE (<2.0 mg/dL); URINE COLOR LTYELLOW; URINE GLUCOSE (UA) NEGATIVE (NEGATIVE); URINE KETONE NEGATIVE (NEGATIVE); URINE NITRITE NEGATIVE (NEGATIVE); URINE PROTEIN NEGATIVE (NEGATIVE); URINE UROBILINOGEN NEGATIVE mg/dL (0.2-1.0)
[2018-02-08 22:32] LABS: URINE LEUK ESTERASE 3+ (NEGATIVE)
[2018-02-08] MEDS ORDERED: ONDANSETRON 4 MG/2 ML VIAL IVPUSH ONE (22:34)
[2018-02-08 22:39] LABS: EPI CELLS FEW /HPF (FEW); URINE MUCUS RARE
[2018-02-08] MEDS ORDERED: ONDANSETRON 4 MG/2 ML VIAL ONE (22:56)
== END 2018-02-09 00:01 | disposition home or self-care (01) ==
LOC: JER 20:00
PROC: 3E033GC Introduction of Other Therapeutic Substance into Peripheral Vein, Percutaneous Approach (ICD-10-PCS; principal; 2018-02-08)
DX: O26.891 Other specified pregnancy related conditions, first trimester (principal); O21.0 Mild hyperemesis gravidarum; O23.31 Infections of other parts of urinary tract in pregnancy, first trimester; Z3A.09 9 weeks gestation of pregnancy
CPT/HCPCS: 36415; 76817-TC; 81003; 81015; 84702; 85025; 87086; 99283-25

== ENCOUNTER 2018-04-19 11:52 | Emergency (ER) | payer OTHER ==
[2018-04-19 12:28] VITALS: BP 107/57; PULSE 74; TEMP 98.2; BMI 34.5
[2018-04-19] MEDS ORDERED: diphenhydrAMINE HCL 25 MG CAPSULE (FP) PO ONE ×2 (13:29→13:30)
--- NOTE | 2018-04-19 13:30 | PDOC ---
History of Present Illness - General Chief Complaint: Rash Stated Complaint: CHEST PAIN Time Seen by Provider: 04/19/18 13:11 History Source: Patient Exam Limitations: No Limitations - History of Present Illness Initial Comments: 04/19/18 13:25 Patient is here with complaints of very pruritic rash that's coming and going first noticed on her arms last night and now has multiple lesions on her mid to lower back and thighs. 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 States last night had some mild shortness of breath that spontaneously resolved but has had no swelling to lips, tongue or pharynx, Patient states she has no new soaps, lotions, creams, food ingestions medications or vitamins. Location: reports: extremities, generalized, torso Respiratory Risk Factors: reports: no cause identified Modifying Factors: improves with: scratching. worse with: antihistamine, calamine lotion Past History - Travel Traveled outside of the country in the last 30 days: No Close contact w/someone who was outside of country & ill: No - Past Medical History Allergies/Adverse Reactions: Allergies Allergy/AdvReac Type Severity Reaction Status Date / Time Fish Containing Products Allergy Mild Hives Verified 04/19/18 12:26 fish derived Allergy Mild Hives Verified 04/19/18 12:26 Penicillins Allergy Mild Hives Verified 04/19/18 12:26 Home Medications: Ambulatory Orders Prenat 115/Iron Fum/Folic/Dss [ 19 Tablet] 1 each PO DAILY 04/11/18 Diphenhydramine HCl [Benadryl -] 25 mg PO Q8H PRN #21 capsule 04/19/18 Anemia: Yes Asthma: Yes (seasonal) COPD: No - Surgical History Abdominal Surgery: Yes Cholecystectomy: Yes - Reproductive History (#): 1 Para: 1 Cervical CA: No Dysfunctional Uterine Bleeding: No Ectopic : No Endometrial CA: No Polycystic Ovaries: No Therapeutic (s) & number: No Tubal Ligation: No - Immunization History Immunization Up to Date: Yes - Suicide/Smoking/Psychosocial Hx Smoking Status: No Smoking History: Never smoked Have you smoked in the past 12 months: No Number of Cigarettes Smoked Daily: 0 Hx Alcohol Use: No Drug/Substance Use Hx: No Substance Use Type: None Hx Substance Use Treatment: No Review of Systems - Review of Systems Able to Perform ROS?: Yes Is the patient limited Cymraes proficient: Yes Constitutional: Yes: Symptoms Reported, Malaise HEENTM: Yes: See HPI. No: Symptoms Reported Respiratory: Yes: See HPI. No: Symptoms reported, Shortness of Breath, Wheezing : No: Symptoms Reported Musculoskeletal: No: Symptoms Reported Integumentary: Yes: Symptoms Reported, See HPI, Pruritus, Rash Psychiatric: Yes: Stressors All Other Systems: Reviewed and Negative *Physical Exam - Vital Signs Last Vital Signs Temp Pulse Resp BP Pulse Ox 98.2 F 74 18 107/57 100 04/19/18 12:26 04/19/18 12:26 04/19/18 12:26 04/19/18 12:04/19/18 12:26 - Physical Exam General Appearance: Yes: Nourished, Appropriately Dressed, Apparent Distress, Mild Distress HEENT: positive: JOAN, Normal ENT Inspection (airway clear, no swelling to lips , tongue, pharynx.), TMs Normal, Pharynx Normal, Rhinorrhea Neck: negative: Tender Gastrointestinal/Abdominal: positive: Soft Extremity: positive: Normal Capillary Refill, Tender Integumentary: positive: Normal Color, Rash (multiple discrete lesions raised, mild-like appearance but no erythema and non-confluent. 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 Uncertain as to cause, may be stressors. Patient encouraged to continue Benadryl as antihistamine and conservative measures as is still 18 weeks with uncertain direction of continued . Will follow up with PMD or return if symptoms become worse or have occurrence of swelling to face, tongue or airway. *DC/Admit/Observation/Transfer Diagnosis at time of Disposition: Urticaria - Discharge Dispostion Disposition: HOME Condition at time of disposition: Stable Decision to Admit order: No - Prescriptions Prescriptions: Diphenhydramine HCl [Benadryl -] 25 mg PO Q8H PRN #21 capsule PRN Reason: sneezing/cough - Referrals Referrals: Ricky Pagan [Primary Care Provider] - - Patient Instructions Printed Discharge Instructions: DI for Hives Additional Instructions: Rest, keep cool and dry- avoid strenuous activity or hot /humid environments Less hot showers, no abrasive soaps May use heavy creams like Eucerin or Cetaphil to keep skin moist May apply Aveeno, calamine lotion, [id number] creams as needed for symptoms May use Benadryl at night for antihistamine, Zyrtec/ Leidy or Claritin for daytime antihistamine use to help with itching May use jwwe-[id number] hydrocortisone cream on all areas except face Try to identify cause for rash and avoid exposures Followup with PMD in one week if no resolution 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
--- NOTE | 2018-04-23 08:55 | EKG ---
Test Reason : Blood Pressure : / mmHG Vent. Rate : 069 BPM Atrial Rate : 069 BPM P-R Int : 148 ms QRS Dur : 070 ms QT Int : 390 ms P-R-T Axes : 040 062 041 degrees QTc Int : 417 ms NORMAL SINUS RHYTHM NORMAL ECG WHEN COMPARED WITH ECG OF 10-JAN-2015 23:32, NO SIGNIFICANT CHANGE WAS FOUND Confirmed by PAXTON CRAWFORD MD ([id number]) on 04/23/2018 8:54:54 AM Referred By: Confirmed By:PAXTON CRAWFORD MD
== END 2018-04-19 14:02 | disposition home or self-care (01) ==
LOC: JERFT 11:52
DX: O26.892 Other specified pregnancy related conditions, second trimester (principal); Z3A.14 14 weeks gestation of pregnancy; L50.9 Urticaria, unspecified
CPT/HCPCS: 93005; 93010; 99281-25

== ENCOUNTER 2019-01-16 06:47 | Emergency (ER) | payer OTHER ==
[2019-01-16 07:31] VITALS: BP 144/78; PULSE 63; TEMP 97.6; BMI 37.0
--- NOTE | 2019-01-16 08:15 | PDOC ---
History of Present Illness - General Chief Complaint: Shortness of Breath Stated Complaint: S.O.B. Time Seen by Provider: 01/16/19 07:46 History Source: Patient - History of Present Illness Timing/Duration: other (last night) Past History - Past Medical History Allergies/Adverse Reactions: Allergies Allergy/AdvReac Type Severity Reaction Status Date / Time Fish Containing Products Allergy Mild Hives Verified 01/16/19 07:27 fish derived Allergy Mild Hives Verified 01/16/19 07:27 Penicillins Allergy Mild Hives Verified 01/16/19 07:27 Home Medications: Ambulatory Orders Prenat 115/Iron Fum/Folic/Dss [ 19 Tablet] 1 each PO DAILY 04/11/18 Diphenhydramine HCl [Benadryl -] 25 mg PO Q8H PRN #21 capsule 04/19/18 Anemia: Yes Asthma: Yes (seasonal) COPD: No - Surgical History Abdominal Surgery: Yes Cholecystectomy: Yes - Reproductive History (#): 1 Para: 1 Cervical CA: No Dysfunctional Uterine Bleeding: No Ectopic : No Endometrial CA: No Polycystic Ovaries: No Therapeutic (s) & number: No Tubal Ligation: No - Immunization History Immunization Up to Date: Yes - Suicide/Smoking/Psychosocial Hx Smoking Status: No Smoking History: Never smoked Have you smoked in the past 12 months: No Number of Cigarettes Smoked Daily: 0 Hx Alcohol Use: No Drug/Substance Use Hx: No Substance Use Type: None Hx Substance Use Treatment: No Review of Systems - Review of Systems Constitutional: No: Chills, Fever Respiratory: No: Shortness of Breath Cardiac (ROS): Yes: Palpitations. No: Chest Pain, Lightheadedness, Syncope ABD/GI: No: Nausea, Vomiting, Abdominal cramping Integumentary: No: Pruritus, Rash *Physical Exam - Vital Signs Last Vital Signs Temp Pulse Resp BP Pulse Ox 97.6 F 63 18 144/78 99 01/16/19 07:28 01/16/19 07:28 01/16/19 07:28 01/16/19 07:28 01/16/19 07:28 - Physical Exam General Appearance: Yes: Appropriately Dressed. No: Apparent Distress HEENT: positive: Normal ENT Inspection, Normal Voice, Pharynx Normal. negative : Scleral Icterus (R), Scleral Icterus (L) Neck: positive: Supple Respiratory/Chest: positive: Lungs Clear, Normal Breath Sounds. negative: Respiratory Distress Cardiovascular: positive: Regular Rate, S1, S2 Gastrointestinal/Abdominal: positive: Soft. negative: Tender Integumentary: positive: Dry, Warm Neurologic: positive: Fully Oriented, Alert, Normal Mood/Affect ED Treatment Course - LABORATORY CBC & Chemistry Diagram: 01/16/19 08:28 01/16/19 08:04 Medical Decision Making - Medical Decision Making 01/16/19 08:02 28 yo F, denies any sig pmhx, here with a constellation of symptoms including palpitations, numbness and tingling to lips and b/l lower extremity that started last night. Patient states she is currently trying to lose weight and decided to try a new weight loss supplement called [employer] that she purchased over the Internet. Yesterday's regimen included 2 shakes, a tea and 2 pills. Noticed palpitations last night as she was trying to sleep that continued this a.m. and at some point developed numbness and tingling to her lips and lower extremities. Reports feeling a little anxious at this time. No lip, tongue swelling, shortness of breath rash or pruritus. See exam Possible adverse rx to new weight loss supplement Since improved No e/o serious allergic rxn Stable and well candy w/ normal exam -will check ekg/labs -anticipate dc home 01/16/19 09:38 EKG/labs unremarkable. Pt now states she feels well enough to go home and has remained stable and well-appearing throughout ED visit. Will dc with instructions to refrain from continuing new herbal supplement and discuss further with her PMD *DC/Admit/Observation/Transfer Diagnosis at time of Disposition: Numbness and tingling, Palpitations - Discharge Dispostion Disposition: HOME Condition at time of disposition: Improved - Referrals Referrals: Brina Mabry MD [Primary Care Provider] - - Patient Instructions Additional Instructions: Your symptoms may be due to to the herbal supplement that you are currently taking. Your EKG and labs were all normal. You may want to refrain from continuing herbal supplement and discuss with your PMD. If symptoms persist or worsen, please return to the ED - Post Discharge Activity
[2019-01-16 08:37] LABS: BASO % 0.7 % (0-2.0); EOS % 4.1 % (0-4.5); HEMATOCRIT 38.5 % (32.4-45.2); HEMOGLOBIN 12.5 GM/dL (10.7-15.3); MCH 27.4 pg (25.7-33.7); MCHC 32.4 g/dl (32.0-36.0); MEAN CELL VOLUME 84.4 fl (80-96); MEAN PLT VOLUME 7.9 fl (7.5-11.1); MONO % 8.4 % (3.8-10.2); NEUT % 47.8 % (42.8-82.8); PLATELET COUNT 334 K/MM3 (134-434); RBC 4.56 M/mm3 (3.60-5.2); RDW 15.5 % (11.6-15.6); WHITE BLOOD COUNT 6.2 K/mm3 (4.0-10.0)
[2019-01-16 08:38] LABS: PH,URINE 6.5 (5.0-8.0); URINE APPEARANCE CLEAR; URINE BILIRUBIN NEGATIVE (NEGATIVE); URINE COLOR YELLOW; URINE GLUCOSE (UA) NEGATIVE (NEGATIVE); URINE KETONE NEGATIVE (NEGATIVE); URINE LEUK ESTERASE 1+ (NEGATIVE); URINE NITRITE NEGATIVE (NEGATIVE); URINE PROTEIN NEGATIVE (NEGATIVE); URINE UROBILINOGEN 0.2 mg/dL (0.2-1.0)
[2019-01-16 09:03] LABS: ALK PHOS 60 U/L (45-117); ANION GAP 5 MMOL/L (8-16); BILIRUBIN,TOTAL 0.4 mg/dL (0.2-1); BLOOD UREA NITROGEN 8 mg/dL (7-18); CALCIUM 9.3 mg/dL (8.5-10.1); CHLORIDE 104 mmol/L (98-107); CO2 26 mmol/L (21-32); CREATININE 0.6 mg/dL (0.55-1.3); GLUCOSE,RANDOM 103 mg/dL (74-106); POTASSIUM 3.8 mmol/L (3.5-5.1); SGOT/AST 18 U/L (15-37); SGPT/ALT 20 U/L (13-61); SODIUM 135 mmol/L (136-145); TOT PROT 7.9 g/dl (6.4-8.2)
[2019-01-16 09:20] LABS: EPI CELLS 2.3 /HPF (0-5/HPF); URINE BACTERIA 128.7 /hpf (NEGATIVE); URINE RBC 0.6 /hpf (0-4); URINE WBC 4.2 /hpf (0-5)
--- NOTE | 2019-01-16 11:37 | EKG ---
Test Reason : Blood Pressure : / mmHG Vent. Rate : 059 BPM Atrial Rate : 059 BPM P-R Int : 146 ms QRS Dur : 080 ms QT Int : 422 ms P-R-T Axes : 031 060 048 degrees QTc Int : 417 ms SINUS BRADYCARDIA OTHERWISE NORMAL ECG WHEN COMPARED WITH ECG OF 19-APR-2018 12:00, NO SIGNIFICANT CHANGE WAS FOUND Confirmed by Domingo Jackson MD ([id number]) on 01/16/2019 11:36:59 AM Referred By: Confirmed By:Domingo Jackson MD
== END 2019-01-16 09:52 | disposition home or self-care (01) ==
LOC: JER 06:47
DX: R00.2 Palpitations (principal); T50.995A Adverse effect of other drugs, medicaments and biological substances, initial encounter; Y92.038 Other place in apartment as the place of occurrence of the external cause
CPT/HCPCS: 36415; 80053; 81003; 84703; 85025; 93005; 93010; 99283-25